=== PATIENT | male | born 1970 | race Caucasian/White ===

== ENCOUNTER 2017-06-09 11:18 | Outpatient (CLI) | payer OTHER ==
--- NOTE | 2017-06-09 16:06 | MRI Report ---
EXAM: RIGHT KNEE MRI WITHOUT CONTRAST EXAM DATE: 06/09/2017 12:08 PM. CLINICAL HISTORY: Internal derangement. Right knee popping and posterior tightness. COMPARISON: None. TECHNIQUE: Multiplanar, multisequence T1-weighted and fluid-sensitive sequences of the knee without c ontrast. Other: None. FINDINGS: Bones: No fractures. The patient has a cortical indentation of the peripheral inferior portion of the medial femoral condyle. There is surrounding marrow edema. Articular Cartilage: Unremarkable. Medial Meniscus: There is a flap fragment displaced into the meniscal femoral recess (801/18). Lateral Meniscus: The lateral meniscus is intact. Cruciate Ligaments: The anterior and posterior cruciate ligaments are intact. Collateral Ligaments: The medial collateral and lateral collateral ligamentous structures are intact. Tendons: The quadriceps, patellar, semimembranosus, and popliteus tendons are unremarkable. Musculature: No edema or fatty atrophy. Other: A mild knee effusion is present. A small popliteal cyst is present and shows evidence of ruptu re. No loose bodies. The medial and lateral retinacula are intact. Prepatellar subcutaneous edema is seen. IMPRESSION: 1. Cortical impaction of the peripheral inferior portion of the medial femoral condyle. 2. Complex tear of the medial meniscus. 3. Small ruptured popliteal cyst. [facility] MUSCULOSKELETAL RADIOLOGY SECTION Referring Provider Line: [phone] SITE ID: [id number]
== END 2017-06-09 11:19 | disposition home or self-care (01) ==
LOC: DI 11:18
PROVIDERS: ATTEND Family Medicine
DX: M89.8X5 Other specified disorders of bone, thigh (principal); S83.231A Complex tear of medial meniscus, current injury, right knee, initial encounter; M66.0 Rupture of popliteal cyst

== ENCOUNTER 2022-09-09 08:00 | Outpatient (CLI) | payer OTHER ==
--- NOTE | 2022-09-09 09:01 | XRAY Report ---
PROCEDURE: Chest 2 View X-Ray INDICATIONS: WHEEZING/CHEST CONGESTION TECHNIQUE: 2 views of the chest were acquired. COMPARISON: None. FINDINGS: Surgical changes and devices: None. Lungs and pleura: No pleural effusions or pneumothorax. Lungs are clear. Mediastinum: Mediastinal contours appear normal. Heart size is normal. Bones and chest wall: No suspicious bony lesions. Overlying soft tissues appear unremarkable. IMPRESSION: No acute pulmonary process. Reviewed by: Celestina Guzman MD on 09/09/2022 9:00 AM PDT Approved by: Celestina Guzman MD on 09/09/2022 9:00 AM PDT Station ID: [id number]
== END 2022-09-09 23:59 | disposition home or self-care (01) ==
LOC: DI.S 08:00
PROVIDERS: ATTEND Physician Assistant Medical
DX: R06.2 Wheezing (principal); R09.89 Other specified symptoms and signs involving the circulatory and respiratory systems

== ENCOUNTER 2023-10-10 17:30 | Outpatient (CLI) | payer OTHER ==
--- NOTE | 2023-10-11 11:05 | XRAY Report ---
PROCEDURE: Lumbar Spine 2-3V INDICATIONS: RADICULOPATHY,LUMBOSACRAL REGION TECHNIQUE: 3 views of the lumbar spine were acquired. COMPARISON: None. FINDINGS: Bones: 5 [id number] vertebrae are present. There is mild rightward curvature of lumbar spine wi th apex at L3 level there is 5 mm retrolisthesis of L3 on L4 and L4 on L5. Degenerative endplate robertson ges are noted throughout lumbar spine. Bilateral facet arthrosis at L4-5 and L5-S1 levels are seen.. No vertebral body compression fractures. No suspicious bony lesions. Soft tissues: Overlying bowel gas pattern is normal. No suspicious soft tissue calcifications. IMPRESSION: No acute compression fracture. Mild scoliosis and grade 1 retrolisthesis at L3-4 and L4-5 levels as a joselito. Degenerative disc disease throughout lumbar spine. Reviewed by: Lauro Vargas MD on 10/11/2023 11:03 AM PDT Approved by: Lauro Vargas MD on 10/11/2023 11:03 AM PDT Station ID: [id number]
== END 2023-10-10 17:31 | disposition home or self-care (01) ==
LOC: DI.S 17:30
PROVIDERS: ATTEND Chiropractor
DX: M47.816 Spondylosis without myelopathy or radiculopathy, lumbar region (principal); M51.36 Other intervertebral disc degeneration, lumbar region; M47.817 Spondylosis without myelopathy or radiculopathy, lumbosacral region; M41.9 Scoliosis, unspecified; M43.16 Spondylolisthesis, lumbar region